=== PATIENT | female | born 1935 | race Caucasian/White ===

== ENCOUNTER 2018-10-25 06:14 | Inpatient (IN) ==
[2018-10-19 12:18] LABS: Appearance,Urine CLEAR; Bilirubin,Urine NEG (NEG); Color,Urine YELLOW; Culture Indicated,Urine NO; Glucose,Urine (UA) NEGATIVE (NEG); Ketones,Urine NEG (NEG); Leukocyte Esterase,Urine NEG /uL (NEG); Nitrate,Urine NEG (NEG); Protein,Urine NEG (NEG); Specific Gravity,Urine 1.018 (1.000-1.035); Urine Blood NEG mg/dL (<0.03); Urobilinogen,Urine NEG (NEG)
[2018-10-19 13:12] LABS: Basophils # (Auto) 0 K/mcL (0.0-0.3); Basophils % (Auto) 0.3 % (0.0-2.0); Eosinophils # (Auto) 0.8 K/mcL (0.0-0.7); Eosinophils % (Auto) 13.9 % (0.0-7.0); Granulocytes % (Auto) 58.2 % (38.0-78.0); Hematocrit 43.9 % (36.0-48.0); Hemoglobin 14.2 g/dL (12.0-15.0); Lymphocytes # (Auto) 1.2 K/mcL (1.5-4.8); Lymphocytes % (Auto) 20.1 % (15.5-49.0); Mean Cell Volume 89.4 fL (80.0-100.0); Mean Corpuscular HGB Conc 32.3 g/dL (31.0-36.0); Mean Platelet Volume 9.4 fL (7.4-10.4); Monocytes # (Auto) 0.5 K/mcL (0.1-0.9); Monocytes % (Auto) 7.5 % (1.0-12.0); Platelet Count 256 K/mcL (140-440); RBC 4.91 M/mcL (4.00-5.20); Red Cell Distribution Width 13.6 % (11.5-14.5)
[2018-10-19 13:14] LABS: Blood Urea Nitrogen 16 mg/dl (8-23); Calcium 9.3 mg/dl (8.6-10.4); Carbon Dioxide 27 mmol/L (22-30); Chloride 104 mmol/L (96-108); Glomerular Filtration Rate 85; Glucose 102 mg/dL (70-105); Sodium 143 mmol/L (133-145)
[2018-10-19 13:24] LABS: Prothrombin Time 12.8 sec (11.9-14.5)
[~2018-10-25 06:14] MED LIST: 0.9 % SODIUM CHLORIDE 9 ML, KETOROLAC 30 MG, ROPIVACAINE HCL/PF 49.5 ML, EPINEPHrine 0.... IJ SCH; ACETAMINOPHEN 500 MG TABLET PO SCH; CELECOXIB 200 MG CAPSULE PO SCH; PREGABALIN 75 MG CAPSULE PO SCH; ceFAZolin 2 GM in DEXTROSE 5% IN WATER 50 ML IV SCH; oxyCODONE 10 MG TAB.ER.12H PO SCH
[2018-10-25] MEDS ORDERED: IPRATROPIUM/ALBUTEROL 3 ML AMPUL.NEB NEB PRN ×2 (06:30→10:36)
[2018-10-25] MEDS ORDERED: SCOPOLAMINE 1 PATCH PATCH TOPICAL PRN (06:30)
[2018-10-25] MEDS ORDERED: PHENYLEPHRINE 10 MG/ML VIAL IV ONE (09:22)
[2018-10-25] MEDS ORDERED: ROPIVACAINE HCL/PF 30 ML VIAL IJ ONE (09:22)
[2018-10-25] MEDS ORDERED: TRANEXAMIC ACID 1,000 MG/10 ML VIAL IV ONE ×2 (09:22→10:42)
[2018-10-25] MEDS ORDERED: PROPOFOL 200 MG/20 ML VIAL IV ONE (09:22)
[2018-10-25] MEDS ORDERED: MIDAZOLAM 2 MG/2 ML VIAL IV ONE (09:22)
[2018-10-25] MEDS ORDERED: KETAMINE 100 MG/ML ML IV ONE (09:22)
[2018-10-25] MEDS ORDERED: ONDANSETRON 4 MG/2 ML VIAL IV ONE (09:22)
[2018-10-25] MEDS ORDERED: GLYCOPYRROLATE 0.2 MG/ML VIAL IV ONE (09:22)
[2018-10-25] MEDS ORDERED: LIDOCAINE HCL/PF 100 MG/5 ML SYRINGE IV ONE (09:22)
[2018-10-25] MEDS ORDERED: GENTAMICIN SULFATE 800 MG/20 ML VIAL IR ONE (09:51)
[2018-10-25] MEDS ORDERED: METHOCARBAMOL 1,000 MG/10 ML VIAL IV PRN (10:36)
[2018-10-25] MEDS ORDERED: fentaNYL 100 MCG/2 ML VIAL IV PRN (10:36)
[2018-10-25] MEDS ORDERED: MEPERIDINE 25 MG/ML SYRINGE IV PRN (10:36)
[2018-10-25] MEDS ORDERED: ONDANSETRON 4 MG/2 ML VIAL IV PRN ×2 (10:36→10:42)
[2018-10-25] MEDS ORDERED: HYDROmorphone 2 MG/ML VIAL IV PRN (10:42)
[2018-10-25] MEDS ORDERED: FLEETS ADULT ENEMA PR PRN (10:42)
[2018-10-25] MEDS ORDERED: POLYETHYLENE GLYCOL 3350 17 GM PACKET PO PRN (10:42)
[2018-10-25] MEDS ORDERED: MAGNESIUM HYDROXIDE 30 ML ORAL.SUSP PO PRN (10:42)
[2018-10-25] MEDS ORDERED: BISACODYL 10 MG SUPP.RECT PR PRN (10:42)
[2018-10-25] MEDS ORDERED: BENZOCAINE/MENTHOL 1 LOZENGE PO PRN (10:42)
[2018-10-25] MEDS ORDERED: LACTATED RINGERS 1,000 ML IV SCH (10:45)
--- NOTE | 2018-10-25 11:24 | XRay Report ---
CLINICAL INFORMATION: Postsurgical follow-up TECHNIQUE: AP and lateral right knee COMPARISON: None. FINDINGS: Status post right total knee arthroplasty. Femoral and tibial components are in anatomic positions. There is postsurgical soft tissue and intra-articular gas. IMPRESSION: Status post right total knee arthroplasty Interpreted and Authenticated by: Percy Mcguire 10/25/18
[2018-10-25] MEDS: 0.9 % SODIUM CHLORIDE 10 ML SYRINGE IV SCH ×2 (11:32→20:21)
[2018-10-25] MEDS: 0.45 % SODIUM CHLORIDE 1,000 ML IV SCH ×2 (12:59→23:16)
[2018-10-25] MEDS: KETOROLAC 15 MG/ML VIAL IV SCH ×3 (13:00→23:37)
[2018-10-25] MEDS: oxyCODONE/APAP 5/325MG TABLET PO PRN ×2 (13:00→20:21)
--- NOTE | 2018-10-25 13:51 | Brief Operative Note ---
Date of procedure: 10/25/18 Pre-op diagnosis: Right knee djd with severe valgus malalignment and peroneal at risk Post-op diagnosis: same Procedure: Right knee tka and peroneal nerve release Grafts/Implants: Yes Anesthesia: MIHAIA Surgeon: Juan Queen [employer] Specialist: Casey Ricks Estimated blood loss (cc): 50 Tourniquet Time (Minutes): 35 Specimens Removed/Pathology: none sent Condition: stable Disposition: PACU
[2018-10-25] MEDS: OMEPRAZOLE 20 MG CAPSULE PO SCH (17:14)
[2018-10-25] MEDS: ceFAZolin 1 GM VIAL IV SCH ×2 (17:14→23:37)
[2018-10-25] MEDS: SENNOSIDES 1 TABLET PO SCH (20:20)
[2018-10-25] MEDS: MELATONIN 3 MG TABLET PO SCH (20:21)
[2018-10-25] MEDS: ASPIRIN 325 MG ENTERIC COATED TABLET PO SCH (20:21)
[2018-10-25] MEDS: DOCUSATE SODIUM 100 MG CAPSULE PO SCH (20:21)
[2018-10-25] MEDS ORDERED: TEMAZEPAM 15 MG CAPSULE PO PRN (21:00)
[2018-10-26] MEDS: oxyCODONE/APAP 5/325MG TABLET PO PRN ×4 (00:37→07:26)
[2018-10-26] MEDS: KETOROLAC 15 MG/ML VIAL IV SCH ×4 (05:15→23:48)
[2018-10-26] MEDS: 0.9 % SODIUM CHLORIDE 10 ML SYRINGE IV SCH ×3 (05:15→20:23)
--- NOTE | 2018-10-26 07:24 | Operative Note ---
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 PROCEDURE: Right total knee arthroplasty with peroneal nerve release. SURGEON: Juan Queen MD SUIT MAKER: Casey Ricks PA-C. The PA's assistance was required for the safe and efficient completion of the entire case. This provider's expertise and technical skill were required throughout the case. The PA assisted with preoperative coordination, intraoperative retraction, wound closure, dressing and splint application, as well as postoperative documentation and care coordination. ANESTHESIA: General LMA anesthesia. COMPLICATIONS: None noted. ESTIMATED BLOOD LOSS: About 50 mL TOURNIQUET TIME: 50 minutes. IMPLANTS: Per nurse's note. DESCRIPTION OF PROCEDURE: The patient was brought to the operating room and put to sleep with general LMA anesthesia. Once asleep, the patient had the right leg confirmed as the operative site by initials, consent form and x-rays. Ioban had been placed over the skin. We made a midline incision. We exposed the joint through a mid vastus approach and placed a guide charity into the femur. Because of the severe deformity soft tissue releases had to be performed of the IT band, the lateral collateral structures. We made our distal femoral cut at 5 degrees of valgus, 3 degrees of external rotation, 9 mm of distal femur was cut. Once done, we then cut the proximal tibia in line with the shaft and this was cut at neutral, both neutral slope and neutral varus valgus. We then removed the bony fragments, removed osteophytes posteriorly. We made our chamfer cuts on the femur and then we trialed the components. Size 3 femur and size 3 tibial baseplate. We then tried trial a size 9 and went to a 10. This seemed to bring the leg back much straighter. Once this was done, we then prepared the patella. It measured 16 mm in total thickness. This was cut to 13 mm and then we placed a protective button. This tracked very well. We took the knee through range of motion, very stable. We made the box cut on the femur for the post to help with correction of the severe deformity. At this point, we then made an incision 2 inches in size over the peroneal nerve and identified the peroneal nerve and tracked it through the lateral fibular head at the knee. Once thoroughly depressed, we irrigated. We closed this wound with 2-0 Vicryl and el on the skin on the knee. After final implant cementing into place the size 3 femur and size 3 tibial baseplate with a 10 mm poly insert with a post. All excess cement was removed. We cemented into place a 29 mm patellar button. We then closed the mid vastus approach with #1 fix and el superficially. The patient tolerated this well. Tourniquet was deflated at 50 minutes. There was no complication. [email or web address]:[email or web address] Job ID: [id number] Doc ID: [id number] Juan Queen MD
[2018-10-26] MEDS: OMEPRAZOLE 20 MG CAPSULE PO SCH ×2 (07:26→18:02)
[2018-10-26] MEDS: LEVOTHYROXINE 100 MCG TABLET PO SCH (07:26)
--- NOTE | 2018-10-26 07:26 | Orthopedic Progress Note ---
Subjective Patient information: Note initiated : 10/26/18 at 7:25 am Service Date, if different from initiated Date: [] Patient: Jasmina Kimble 83 y/o F admitted on 10/25/18 for Right Total Knee Arthroplasty. Chief Complaint: [Pt is stable this morning on post operative day 1 without any significant concerns or complaints. Patients vital signs have remained stable. Patients dressing is dry and is grossly intact from a neurovascular and motor standpoint. Patients 10 point ROS is otherwise negative. ] Objective Vital signs: Vital Signs Temp Pulse Resp BP Pulse Ox 10/26/18 03:15 98.6 F 94 H 16 126/67 94 10/25/18 23:37 98.4 F 91 H 16 130/63 97 10/25/18 19:04 97.8 F 96 H 16 131/71 96 10/25/18 16:00 97.3 F 96 H 16 117/63 95 10/25/18 15:00 94 10/25/18 14:40 97.8 F 98 H 16 148/72 95 10/25/18 13:40 97 H 16 151/72 95 10/25/18 13:10 93 H 16 136/68 94 10/25/18 12:40 90 16 147/69 94 10/25/18 12:25 97 H 16 135/68 95 10/25/18 12:10 92 H 16 119/60 93 10/25/18 11:45 96.7 F L 96 H 16 120/61 93 10/25/18 11:38 97.0 F 95 H 17 138/53 93 10/25/18 11:30 94 H 15 141/53 93 10/25/18 11:15 90 16 142/57 96 10/25/18 11:10 93 H 16 146/54 96 10/25/18 11:05 95 H 17 141/57 96 10/25/18 11:00 97.4 F 104 H 18 131/53 95 Intake and Output 10/25/18 10/26/18 10/26/18 21:59 05:59 13:59 Intake Total 1385 Output Total 201 2 Balance -201 1383 Intake: IV 900 Sodium Chloride 0.45% 1,000 ml 900 @ 100 mls/hr IV .Q10H SUJATHA Rx#: [id number] Oral 485 Output: Void Amount 200 # of times incontinent of urine 1 2 Other: Meal Dinner Percent of Meal Consumed 50% Urine Appearance Clear Urine Color Bright Yellow Urine Odor Normal # Voids 1 Weight 125 lb 8 oz Intake & Output: Intake & Output 10/25/18 10/26/18 10/26/18 21:59 05:59 13:59 Intake Total 1385 Output Total 201 2 Balance -201 1383 Weight 125 lb 8 oz Intake: IV 900 Sodium Chloride 0.45% 1,000 ml 900 @ 100 mls/hr IV .Q10H SUJATHA Rx#: [id number] Oral 485 Output: Void Amount 200 # of times incontinent of urine 1 2 Other: Meal Dinner Percent of Meal Consumed 50% Urine Appearance Clear Urine Color Bright Yellow Urine Odor Normal # Voids 1 Incision: Yes healing Incision clean and dry: Yes Dressing: Yes clean Weight bearing status: full Neurological exam IM: Yes motor sensory intact, Yes neurovascular intact Extremities exam IM: Yes Foot pink and warm, Yes neurovascular intact - Labs CBC & BMP: 10/26/18 04:55 10/19/18 10:42 Labs: Orthopedic Labs 10/19/18 10:42 PT 12.8 INR 1.0 APTT 30 10/26/18 10/19/18 04:55 10:43 Hgb 14.2 Hct 34.7 L 43.9 Assessment and Plan (1) Hx of total knee arthroplasty The patient has been educated regarding dressing care, Physical Therapy recommendations, home exercises, restrictions, and follow up appointments. The patient has had all necessary DME prescribed. The patient has remained relati vely stable during their hospital course. Leave Dermabond patch intact until followup Status: Acute
--- NOTE | 2018-10-26 07:28 | Discharge Summary ---
Ortho Discharge - TKA - Patient Instructions Diet: Regular Diet Activity: activity as tolerated, weight bearing as tolerated Total Knee Protocol: For Total Knee: Start ROM SANTY with stationary bike or rocking chair. Work on gaining full extension of knee. Posterior dislocation precautions provided. Hip abductor strengthening and gait training instructions provided. Apply Cryocuff as instructed. Dressing Care: May shower in 2 days - Problem Maintenance (1) Hx of total knee arthroplasty Status: Acute - Follow Up Plan Follow Up Appointments: Casey Ricks PA-C [Physician [employer]] - 11/09/18 9:20 am Disposition: Home, Self-Care Prognosis: Good Rehab Potential: Good I certify that the patient requires SNF services: No Overall status at discharge: patient is progressing back to baseline - Orders For Discharge Prescriptions: Aspirin [Ecotrin] 325 mg PO BID #60 tab.ec Docusate Sodium [Colace] 100 mg PO BID #60 cap oxyCODONE/APAP [Percocet 5-325 mg] 1 - 2 tab PO Q4HP PRN #75 tab PRN Reason: Pain Level 3-6
[2018-10-26] MEDS: ASPIRIN 325 MG ENTERIC COATED TABLET PO SCH ×2 (10:37→20:23)
[2018-10-26] MEDS: MULTIVIT,THER IRON,CA,FA & MIN 1 TABLET PO SCH (10:37)
[2018-10-26] MEDS: LISINOPRIL 20 MG TABLET PO SCH (10:37)
[2018-10-26] MEDS: MAGNESIUM OXIDE 400 MG TABLET PO SCH (10:37)
[2018-10-26] MEDS: DOCUSATE SODIUM 100 MG CAPSULE PO SCH ×2 (10:37→20:23)
[2018-10-26] MEDS: ACETAMINOPHEN 325 MG TABLET PO PRN ×2 (10:38→18:02)
[2018-10-26] MEDS: SENNOSIDES 1 TABLET PO SCH (20:23)
[2018-10-26] MEDS: MELATONIN 3 MG TABLET PO SCH (20:23)
[2018-10-27] MEDS: ACETAMINOPHEN 325 MG TABLET PO PRN ×2 (02:55→09:44)
[2018-10-27] MEDS: KETOROLAC 15 MG/ML VIAL IV SCH (05:07)
[2018-10-27] MEDS: 0.9 % SODIUM CHLORIDE 10 ML SYRINGE IV SCH (05:08)
[2018-10-27] MEDS: LEVOTHYROXINE 100 MCG TABLET PO SCH (07:04)
[2018-10-27] MEDS: OMEPRAZOLE 20 MG CAPSULE PO SCH (07:04)
[2018-10-27] MEDS: MAGNESIUM OXIDE 400 MG TABLET PO SCH (09:44)
[2018-10-27] MEDS: MULTIVIT,THER IRON,CA,FA & MIN 1 TABLET PO SCH (09:44)
[2018-10-27] MEDS: ASPIRIN 325 MG ENTERIC COATED TABLET PO SCH (09:44)
[2018-10-27] MEDS: DOCUSATE SODIUM 100 MG CAPSULE PO SCH (09:44)
[2018-10-27] MEDS: LISINOPRIL 20 MG TABLET PO SCH (09:44)
== END 2018-10-27 12:55 | disposition home or self-care (01) | DRG 470 ==
LOC: MEDSUR 06:14
PROVIDERS: ADMIT Orthopaedic Surgery; ATTEND Orthopaedic Surgery